=== PATIENT | female | born 1995 | race Native Hawaiian/Other Pacific Islander ===

== ENCOUNTER 2021-08-05 13:05 | Outpatient (CLI) | payer MEDICAID, SELFPAY ==
--- NOTE | 2021-08-05 13:00 | CRLHL7_ITS ---
For Patients: As a result of the Century Cures Act, medical imaging exams and procedure reports are released immediately into your electronic medical record. You may view this report before your referring provider. If you have questions, please contact your health care provider. OBSTETRICAL ULTRASOUND ANATOMY SURVEY 08/05/2021 CLINICAL HISTORY: anatomy survey. 1, para 0. TECHNIQUE: Multiple sonographic images were obtained transabdominally. FINDINGS: Gestational age by LMP: 20 weeks 6 days. Gestational age by today`s ultrasound: 21 weeks 6 days. JOSE by LMP: 12/17/2021. SDP: 6.3 cm. Cervical Length: 4.3 cm, closed. Estimated Weight: 453 g, 1 pound, 0 ounces. Heart Rate: 159 bpm. Placenta: Anterior. Placenta tip to internal os 4.8 cm. Placental insertion: Central. Umbilical cord: 3-vessel. Position: Variable. BPD: 5.4 cm, 22 weeks 4 days, 96%. HC: 20.3 cm, 22 weeks 3 days, 94%. AC: 17.2 cm, 22 weeks 1 day, 83%. FL: 3.5 cm, 21 weeks 1 day, 50%. SURVEY Calvarium/spine: Cerebellum 2.2 cm, 21 weeks 0 days. Cisterna magna 6 mm. Nuchal fold 4 mm. Lateral ventricle 6 mm. CSP, Midline Falx, Choroid Plexus, Spine all visualized. ANATOMY SURVEY: Abdomen: Stomach, abdominal cord insertion, urinary bladder, kidneys, diaphragm all visualized. Face: Nose/lips, orbital view, profile all visualized. Limbs: Upper extremities, lower extremities, hands, feet all visualized. Vascular: Four-chamber heart, 3 VV, 3 VTV all visualized. COMMENTS: Single live intrauterine gestation with composite gestational age of 21 weeks 6 days. JOSE of 12/10/2021. No gross anomalies visualized, however outflow tracts were suboptimally seen. CAITLIN ZUNIGA M.D. Transcribed: 7:56 p.m. [email or web address] be/Dictated by: Caitlin Zuniga MD @ 08/05/2021 2:57:00 PM (Electronically Signed)
== END 2021-08-05 13:06 | disposition home or self-care (01) ==
LOC: US 13:10
PROVIDERS: Visit Provider Advanced Practice Midwife
DX: Z34.02 Encounter for supervision of normal first pregnancy, second trimester (principal); Z3A.20 20 weeks gestation of pregnancy
CPT/HCPCS: 76805

== ENCOUNTER 2021-08-13 08:04 | Outpatient (CLI) | payer MEDICAID, SELFPAY ==
--- NOTE | 2021-08-13 08:15 | CRLHL7_ITS ---
For Patients: As a result of the Century Cures Act, medical imaging exams and procedure reports are released immediately into your electronic medical record. You may view this report before your referring provider. If you have questions, please contact your health care provider. INDICATION: SUBOPTIMAL HEART VIEWS follow-up COMPARISON: 08/05/2021 TECHNIQUE: Real time feliciano scale imaging of the fetus was performed as well as color Doppler analysis of the umbilical vessels. FINDINGS: Sonographic imaging demonstrates a single living intrauterine gestation. Fetus demonstrates a regular cardiac rate of 152 beats per minute. Fetus has a vertex position. The placenta lies anteriorly. Amniotic fluid volume appears normal. Single deepest vertical pocket: 5.6 cm. There is a normal four-chamber heart view and the left and right ventricular outflow tracts appear normal. IMPRESSION: Normal 4 chamber heart, outflow tracts and three-vessel view. Dictated by Loco Resendiz MD @ 08/13/2021 9:23:17 AM (Electronically Signed)
== END 2021-08-13 08:05 | disposition home or self-care (01) ==
LOC: US 08:05
PROVIDERS: Visit Provider Advanced Practice Midwife
DX: Z34.90 Encounter for supervision of normal pregnancy, unspecified, unspecified trimester (principal); Z36.2 Encounter for other antenatal screening follow-up
CPT/HCPCS: 76816

== ENCOUNTER 2021-09-30 13:26 | Outpatient (CLI) | payer MEDICAID, SELFPAY ==
[2021-10-02 18:50] LABS: Rapid Plasma Reagin (RPR) Non Reactive (Non Reactive)
[2021-10-02 23:42] LABS: Varicella-Zoster Virus Ab, IgG 205.4 IV
== END 2021-09-30 13:27 | disposition home or self-care (01) ==
PROVIDERS: Visit Provider Advanced Practice Midwife
DX: Z34.93 Encounter for supervision of normal pregnancy, unspecified, third trimester (principal); Z3A.28 28 weeks gestation of pregnancy
CPT/HCPCS: 86592; 86787

== ENCOUNTER 2021-11-23 13:42 | Outpatient (CLI) | payer MEDICAID, SELFPAY ==
[2021-11-24 13:18] LABS: Strep B DNA Probe POSITIVE (Negative)
== END 2021-11-23 13:43 | disposition home or self-care (01) ==
LOC: NFLDREF 13:43
PROVIDERS: Visit Provider Advanced Practice Midwife
DX: Z34.93 Encounter for supervision of normal pregnancy, unspecified, third trimester (principal); Z3A.38 38 weeks gestation of pregnancy
CPT/HCPCS: 76816; 87081; 87186; 87653

== ENCOUNTER 2021-12-06 02:21 | Outpatient (CLI) | payer MEDICAID, SELFPAY ==
[2021-12-06 02:33] VITALS: PULSE 90; O2SAT 98
[2021-12-06 02:36] VITALS: BP 119/67; PULSE 106; RESP 16; TEMP 36.6
[2021-12-06] MEDS: ONDANSETRON ODT 4 MG TAB PO (03:23)
--- NOTE | 2021-12-06 04:24 | PC.OBNST ---
NST Note NST Note Start: 12/06/21 02:24 Freq: ONCE Status: Active Protocol: Document 12/06/21 04:23 DOTTIE (Rec: 12/06/21 04:23 DOTTIE [id number]) NST Note 2 Para (# of births) 0 EDC 12/17/21 Gestational Age In Weeks & Days 38 Weeks & 3 Days Patient Presented with Complaint(s) of Contractions/cramping,Pain If Pain, describe location constant tailbone pain Reactive Yes Appropriate for Gestational Age Yes KRUPA Ball RNC Date 12/06/21 Reactive Yes Appropriate for Gestational Age Yes KRUPA Rosado RN Date 12/06/21 OB NST charge Yes Complete NST Note via Write Note Yes The provider's electronic signature indicates the NST is reactive/appropriate for gestational age. *Note to provider: If an addendum is required, open the patient's chart and click on the note under the Nurse/Allied Health tab.
== END 2021-12-06 04:20 | disposition home or self-care (01) ==
LOC: OB OUT 02:21 → OB 02:23
PROVIDERS: Visit Provider Advanced Practice Midwife
DX: O47.1 False labor at or after 37 completed weeks of gestation (principal); Z3A.38 38 weeks gestation of pregnancy
CPT/HCPCS: 59025; 99213; A9270

== ENCOUNTER 2021-12-07 09:29 | Outpatient (CLI) | payer MEDICAID, SELFPAY ==
--- NOTE | 2021-12-07 09:45 | CRLHL7_ITS ---
For Patients: As a result of the Century Cures Act, medical imaging exams and procedure reports are released immediately into your electronic medical record. You may view this report before your referring provider. If you have questions, please contact your health care provider. INDICATION: Third trimester scan, evaluate growth. Follow-up fluid COMPARISON: 11/23/2021 TECHNIQUE: Real time feliciano scale imaging of the fetus was performed as well as color Doppler and spectral Doppler analysis of the umbilical artery. FINDINGS: Sonographic imaging demonstrates a single living intrauterine gestation. Fetus demonstrates a regular cardiac rate of 129 beats per minute. Fetus has a vertex position. The placenta lies right anterior. Amniotic fluid volume appears normal and there is a single deepest vertical pocket: 8.8 cm. RAYMOND 14.4 cm. The estimated weight is 4275gm which lies at the greater than 97th %. On the prior OB ultrasound exam dated 11/24/2021 the estimated weight was at the 95th%. BPD and AC greater than 97th percentile. HC 80th percentile. FL 7th percentile. The HC/AC ratio measures 0.90 range (0.87-1.06). IMPRESSION: Sonographic gestational age 39 weeks 0 days and sonographic due date of 12/14/2021. Good correlation with dates. Normal interval growth. Four-quadrant RAYMOND 14.4 cm. Estimated weight greater than 97th percentile. BPD and AC greater than 97th percentile. Dictated by Loco Resendiz MD @ 12/07/2021 10:48:19 AM (Electronically Signed)
== END 2021-12-07 09:30 | disposition home or self-care (01) ==
LOC: US 09:30
PROVIDERS: Visit Provider Advanced Practice Midwife
DX: Z34.93 Encounter for supervision of normal pregnancy, unspecified, third trimester (principal)
CPT/HCPCS: 76815; 76816

== ENCOUNTER 2021-12-17 13:00 | Inpatient (IN) | payer MEDICAID, SELFPAY ==
[2021-12-17] VITALS (29 sets, daily range): BP systolic 117–130; BP diastolic 67–89; PULSE 72–107; RESP 16; TEMP 36.3–37.1; O2SAT 98–100
[2021-12-17 11:35] LABS: Amnisure Rom* POSITIVE
[2021-12-17] MEDS: AMPICILLIN 2 GM in 0.9 % SODIUM CHLORIDE Mini-bag 100 ML IVPB (12:20)
[2021-12-17] MEDS: LACTATED RINGERS 1000 ML 1,000 ML 125 ML IV (12:21)
--- NOTE | 2021-12-17 12:42 | P.LDBA_ITS ---
Subjective History of Present Illness Date Seen: 12/17/21 Narrative: Patient is being admitted to Labor and Delivery for SROM at 0530. She called L&D shortly after this time thinking she was leaking fluid. She was encouraged to come in but really wanted to labor at home. She was encouraged to come in as soon as she could. She choose to wait for her sister to get home from work to bring her in. She arrived around 09:30 and was found to be AmniSure + shortly after. She is linda mildly. she is being admitted and encouraged to change positions frequently and consider pumping and the labor warm up circuit. She is a 26 year old at 40.0 weeks gestation. Her full history and physical was dictated by Elton Turner on 11/30/2021. Please see this for details. 1. FOB has two cousins (one maternal and one paternal) w/ Trisomy 21 ?? ? Uncertain if they want genetic screening-declines 2. 20 week US-Anterior placenta, EFW 90% Growth US at 36 weeks: 95%ile EFW >97%ile at 38 weeks 3. Failed 1 hour gtt (173). Will test BS for 1-2 weeks because of intolerance of blood draws. 10/14/21: 20% abnormal postprandial w/ normal fasting. Recommended continued monitoring x 1 week for further evaluation. Additional week with only 1 abnormal fasting of 97, discontinued glucose monitoring 10/22, offered nutrition consult 4. Elevated SDP 36 weeks: SDP 8.3, RAYMOND 18.6 Possible mild poly, follow-up US scheduled for 38 weeks 38 weeks: SDP 8.8, RAYMOND 14.4, no follow-up needed 5.? GBS positive,?NEEDS?antibiotics in labor 6. FOB not involved OB - H&P: Exam Physical Exam: Vital signs: Pulse BP Pulse Ox 96 122/73 98 12/17/21 11:03 12/17/21 11:03 12/17/21 12:12 Narrative: Vitals per EMR? Psychiatric:? Alert and oriented x3? HEENT:? Normocephalic, atraumatic? Neck:? Supple without adenopathy or thyromegaly? Lungs:? Clear to auscultation bilaterally? Heart:? Regular rate and rhythm, no murmur, rub or gallop? Abdomen:? Soft, nontender, and gravid? Extremities:? No edema or erythema? Pelvic:? SVE: deferred at his time d/t ROM status? Membrane status:? ruptured, clear fluid? presentation:? vertex? FHT:? Moderate Variability.? Positive Accels.? No Decels. Baseline 125.? [place]:? Ctx Q2-5min? OB - Problem Based A/P Additional Plan (1) SROM (spontaneous rupture of membranes): Status: Acute (2) GBS (group B Streptococcus carrier), +RV culture, currently : Status: Acute Plan ASSESSMENT:? at 40.0 weeks gestation? GBS positive? EFW >97%? SROM in early labor? ?? PLAN:? 1. Antibiotic prophylaxis treatment per protocol? 2. Reviewed risks and benefits of expectant management vs labor augmentation. Would like expectant management at this time.? 3. Desires water . Consent signed. Hep C negative.? 4. Candidate for analgesia of choice. Planning unmedicated .? 5. Anticipate ? 6. Expectant management at this time.?Encouraged movement, pumping and labor warm up to encourage labor. 7. IV in place for antibiotic administration. 8. Intermittent monitoring per unit policy.? ? Delivery/Labor/Induction Plan Plan: expectant management
[2021-12-17 13:55] LABS: SARS PCR* Negative SARS-CoV-2 (Negative)
[2021-12-17 15:57] LABS: Basophils Absolute Auto 0.02 K/uL (0.00-0.30); Basophils Percent Auto 0.3 % (0.0-3.0); Eosinophils Absolute Auto 0.19 K/uL (0.00-0.50); Eosinophils Percent Auto 2.5 % (0.0-7.0); Hematocrit 35.1 % (33.0-51.0); Immature Granulocytes Abs Auto 0.02 K/uL (0.00-0.30); Immature Granulocytes Pct Auto 0.3 %; Lymphocytes Absolute Auto 1.71 K/uL (0.90-2.90); Lymphocytes Percent Auto 22.4 % (20-44); Mean Corpuscular HGB Conc 34 gm/dL (32-36); Mean Corpuscular Hemoglobin 32 pg (26-34); Mean Corpuscular Volume 93 fL (80-100); Monocytes Percent Auto 5.9 % (0.0-11.0); Neutrophils Absolute Auto 5.25 K/uL (1.7-7.0); Neutrophils Percent Auto 68.6 % (42.0-72.0); Platelet Count* 122 K/uL (140-440); RDW Coefficient of Variation % 13.1 % (11.5-15.5); Red Blood Count 3.78 m/uL (4.00-5.20); White Blood Count* 7.64 K/uL (4.50-11.00)
[2021-12-17 16:04] LABS: Slide Review Reflex No
[2021-12-17] MEDS: AMPICILLIN 1 GM in 0.9 % SODIUM CHLORIDE Mini-bag 100 ML IVPB ×2 (16:10→20:40)
--- NOTE | 2021-12-17 17:19 | P.OBPN_ITS ---
Subjective Date Seen: 12/17/21 Objective Exam: Contractions have not increased in frequency but are a little stronger per pt report. She would like a SVE at this time to make a plan. Discussed options of cytotec, pitocin or expectant management. All questions answered. She is agreeable to cytotec at this time. Tearful and feeling worried that she is not going to be able to deliver her baby. Encouraged rest, ambulation, and pumping as needed and able. Vital Signs: Last Vital Signs Temp 97.7 F 12/17/21 16:16 Pulse 89 12/17/21 16:16 Resp 16 12/17/21 16:16 BP 117/71 12/17/21 16:16 Pulse Ox 98 12/17/21 12:12 Pelvic Exam Dilation (cm): 1 Effacement (%): 40 Station: -3 Contractions Monitor mode: External Contraction Frequency: 5-10 min Contraction pattern: Regular Contraction intensity: Mild Assessment Assessment: early labor Station: -3 Amniotic Membrane Status: SROM Status: Category l Heart Rate Baseline: 125 Caddy/Caddie Supervisor Variability: Moderate (6-25) Monitor Accelerations: Present Monitor Decelerations: None
[2021-12-17] MEDS: miSOPROStoL 25 MCG/0.25 TABLET PO ×2 (17:34→20:39)
[2021-12-18] VITALS (36 sets, daily range): BP systolic 100–117; BP diastolic 55–77; PULSE 67–111; RESP 16–18; TEMP 36.4–37.3; O2SAT 96–100
[2021-12-18] MEDS: AMPICILLIN 1 GM in 0.9 % SODIUM CHLORIDE Mini-bag 100 ML IVPB ×2 (00:38→04:16)
[2021-12-18] MEDS: MORPHINE 10 MG/ML inj IM (01:12)
[2021-12-18] MEDS: hydrOXYzine pamoate 25 MG CAPSULE 100 MG PO (01:13)
[2021-12-18] MEDS: LACTATED RINGERS 1000 ML 1,000 ML 125 ML IV ×2 (02:49→09:34)
--- NOTE | 2021-12-18 02:59 | PM.OBPNL ---
Subjective Date Seen: 12/18/21 Narrative: I was called to evaluate the patient after she experienced SROM of a forebag and had a prolonged 5 minute deceleration to the 80's Dr. Walls was present on the unit and was present to assist with a FSE placement. The nurses also repositioned, gave a fluid bolus, and applied oxygen. She continued to have decelerations to the 70-80's with some contractions for the next 30 min. She continued to have good variability and return to baseline throughout. She is now having early and occasional variable decelerations. At the time of the FSE placement she had progressed from 1cm to 3cm. She is linda every 1.5-4 min. She is breathing well and coping with contractions. Her sister is at her bedside and supportive. Objective Vital Signs: Last Vital Signs Temp 97.5 F L 12/17/21 23:20 Pulse 77 12/18/21 01:34 Resp 16 12/17/21 23:20 BP 117/60 12/18/21 01:34 Pulse Ox 100 12/18/21 02:01 Pelvic Exam Dilation (cm): 3 Effacement (%): 80 Station: -2 Contractions Monitor mode: External Contraction pattern: Regular Contraction intensity: Mild Assessment Assessment: active labor Station: -3 Amniotic Membrane Status: SROM Status: Category l Heart Rate Baseline: 140 Detention Variability: Moderate (6-25) Monitor Accelerations: Present Monitor Decelerations: Prolonged (see note)
--- NOTE | 2021-12-18 04:38 | PM.OBPNL ---
Subjective Time Seen by Provider: 04:30 Date Seen: 12/18/21 Narrative: Intrapartum Progress Note? Labor and Delivery? Into room for introductions and to assess pt. ? Subjective: Janette is coping with labor pain/contractions by breathing through them, but still in significant pain. She is currently being supported by her sister. EFW 97% at 38w u/s. Called back into room by RN for SVE and to discuss options with pt. Consulted with Elton Gardiner CNM. Janette is planning waterbirth, but with need for FSE, she will not be able to get into the bathtub. Discussed with pt, but she is having a hard time talking through contractions and does not want to move or change positions due to pain. SVE was unchanged, still 3cm, baby not well applied to the cervix. Janette was planning an unmedicated , but with her level of discomfort RN suggested nitrous oxide, but Janette declined. Unable to use the tub d/t FSE. While moving Janette for SVE, baby had additional decels. Position changed to hands and knees which resulted in more decels. Consulted with Dr. Junior Prasad. Recommendation for urgent section, Janette agreeable. Objective Vital Signs: Last Vital Signs Temp 97.6 F 12/18/21 04:11 Pulse 111 H 12/18/21 04:11 Resp 16 12/18/21 04:11 BP 117/77 12/18/21 04:11 Pulse Ox 100 12/18/21 02:01 Pelvic Exam Dilation (cm): 3 Effacement (%): 80 Station: -2 Contractions Monitor mode: External Contraction Frequency: 1-4 Contraction pattern: Irregular Contraction intensity: Moderate Assessment Assessment: early labor Station: -2 Amniotic Membrane Status: SROM Status: Category lll Heart Rate Baseline: 130 [employer] Dealer Variability: Moderate (6-25) Monitor Accelerations: Present Monitor Decelerations: Prolonged (see note) Plan Plan: ASSESSMENT:? at 40.0 weeks gestation? GBS positive? EFW >97%? SROM in early labor Cat 3 FHT Pt not tolerating labor? ?? PLAN:? 1. Antibiotic prophylaxis treatment per protocol? 2. Terbutaline to stop contractions 3. Section, transfer care to Dr. Junior Prasad ?
--- NOTE | 2021-12-18 05:42 | PM.OBCN1 ---
OB - CN: HPI Date of Consult Time Seen by Provider: 05:43 Date Seen: 12/18/21 Patient: Other (CNM patient) Consult date: 12/18/21 Requesting Physician: Maryan Crawford CNM Primary Care Provider: Not a Local Provider Consult Narrative Reason for consult: arrest of labor and nonreassuring FHTs Narrative: HPI: The patient is a 26 year old G 2 P 0 at 40 Weeks and 1 day gestation that was admitted to the Center on 12/17/21 for spontaneous rupture of membranes, clear fluid, GBS positive, unfavorable cervix. She received 3 doses of oral Cytotec 25 mg. Over the labor course there are multiple episodes of heart rate decelerations into the 70s-80s. She has been 3 cm dilated since 2:00 a.m. and is currently having repetitive late decelerations, moderate variability no accelerations, category 2. Maryan Crawford requested a consultation for recommendations as the patient is having nonreassuring heart rate tracing remote from delivery. Her was complicated by mild polyhydramnios that resolved with weekly ultrasounds. Last estimated weight at 38 weeks gestation was> 97%. Her history and physical was reviewed at the time of this consultation. Her past medical, surgical, obstetric/gynecologic, social and family history's were reviewed. History History 2 Elective abortions Para 0 Spontaneous abortions 1 Hx # Term Pregnancies Ectopic pregnancies Hx # Pregnancies Multiple births Number of Living Children 0 Labs Rubella: immune RPR/VDLR: nonreactive GBS status: positive HBsAG: negative OB Labs: Lab Assessment Start: 12/17/21 11:56 Freq: ONCE Status: Complete Protocol: PC.OBGBS Activity Type Activity Date Activity User E-sign Co-sign Detail Recorded Client Recorded Date Recorded By Document 12/17/21 15:28 [facility] [id number] 12/17/21 15:29 S 12/17/21 15:28 Lab Assessment GBS Positive Previous [place] with Invasive GBS No Does Patient Meet Criteria No Is Patient Allergic to Penicillin No No Treatment Needed OK Maternal Blood Type A Maternal RH Factor Positive Evaluate Maternal Rubella Immune Status Immune Hepatitis B Surface Antigen Negative Maternal HIV Status Negative Maternal Syphillis (RPR) Status Negative Are Labs Available Yes PFSH [facility] Medical History (Updated 12/18/21 @ 05:49 by Renée Pascual MD) No significant past medical history Surgical History (Updated 12/18/21 @ 05:49 by Renée Pascual MD) History of facial surgery Status post primary low transverse section (12/18/21) Family History (Updated 11/30/21 @ 12:38 by Carmen Turner CNM) Unknown Patient unsure of family history Social History (Updated 11/30/21 @ 12:39 by Carmen Turner CNM) Are you following a diet prescribed by a doctor: No Are you following a special diet: No Highest level of school completed/degree received: Associate degree: occupational, technical, vocational program Physical activity type: none Smoking Status: Never smoker Non-prescribed substance use: denies use Caffeine: Yes (occasional) Meds Home Medications and Allergies Home Medications Medication Instructions Recorded Confirmed Type cholecalciferol (vitamin D3) 50 50 mcg PO QDAY 08/05/21 12/17/21 History mcg (2,000 unit) capsule prenat.vits,joellen,wbi-rznh-puyyi 1 tab PO QDAY 08/05/21 12/17/21 History Allergies Allergy/AdvReac Type Severity Reaction Status Date / Time No Known Allergies Allergy Verified 12/17/21 14:19 OB - H&P: Exam Physical Exam: Vital signs: Temp Pulse Resp BP Pulse Ox 97.6 F 111 H 16 117/77 100 12/18/21 04:11 12/18/21 04:11 12/18/21 04:11 12/18/21 04:11 12/18/21 02:01 Narrative: GENERAL APPEARANCE: Pleasant, , well-groomed woman in significant pain with contractions VITAL SIGNS: as noted in nursing notes HEAD: Normocephalic, atraumatic. THYROID: no masses, nodularity, tenderness or enlargement. LUNGS: Clear to auscultation bilaterally without wheezes, rales or rhonchi. HEART: Regular rate and rhythm with normal S1 and S2. No gallop, rub or murmur. ABDOMEN: Gravid. Soft, nontender, nondistended, with normal bowels sounds throughout. FSE: Baseline 130s repetitive late decelerations over the last 30 minutes, no accelerations, moderate variability. Category 2 PRESENTATION: [Vertex] by Jared's maneuvers. SVE: 3 cm/ 100 %/ -3: Unchanged from previous exam at 2:00 a.m. EXTREMITIES: No cyanosis, or clubbing. 1-2 +bilateral lower extremity edema to the ankle NEUROLOGIC: Normal gait and balance. Normal deep tendon reflexes at bilateral patella 2+/2, equal without clonus. PSYCHIATRIC: alert and oriented x3. Normal speech pattern, eye contact and affect. SKIN: Warm, dry, and well perfused. Good turgor. No lesions, nodules or rashes. OB - Results Labs Labs: Short CBC 12/17/21 Range/Units 12:09 WBC 7.64 (4.50-11.00) K/uL Hgb 12.0 (12.0-16.0) gm/dL Hct 35.1 (33.0-51.0) % Plt Count 122 L (140-440) K/uL OB - CN: A/P Assessment and Plan (1) SROM (spontaneous rupture of membranes): Status: Acute (2) GBS (group B Streptococcus carrier), +RV culture, currently : Status: Acute (3) Non-reassuring electronic monitoring tracing: Status: Acute Assessment and Plan: Due to nonreassuring heart rate tracing remote from delivery a recommended primary low-transverse section. Consent form for primary low-transverse section reviewed and signed. Operating room staff notified of unstable . (4) Status post primary low transverse section: Status: Acute
--- NOTE | 2021-12-18 05:52 | P.PCN_ITS ---
Procedure Note Time Seen by Provider: 05:53 Date Seen: 12/18/21 Date of procedure: 12/18/21 Will [facility] bill your pro fee for this procedure?: Yes Procedure: Preoperative diagnosis: 26-year-old 2 para 0010 at 40 and 1/7 weeks * Repetitive late decelerations * Arrest of dilation at 3 cm * Suspected macrosomia Postoperative diagnosis: Same Procedure: Primary low-transverse section Anesthesia: Spinal Surgeon: Renée Pascual MD [employer] Supervisor: Not applicable Quantitative blood loss: 270 mL IV Fluid: 500 mL UOP: 150 mL Specimen: none Drain(s): Brunner to gravity Findings: A live male infant was delivered from the ROP position at 6:52 a.m. Apgars were 9 at 1 min and 9 at 5 min, respectively. Infant weight: 8 lb 13 oz = AGA. Nuchal cord(s): no. The placenta was delivered spontaneously and complete at 6:54 a.m. Amniotic fluid: clear. Normal uterus, fallopian tubes and ovaries were noted. Other findings: none Procedure: Janette was taken to the OR where spinal anesthetic was found be adequate. A Brunner catheter was placed. The patient was then placed in the dorsal supine position with a leftward tilt. She was then prepped and draped in a normal sterile manner. A Pfannenstiel skin incision was made and carried through sharply to the underlying layer of fascia. Fascia was incised in the midline and this incision carried laterally with Leon scissors. The superior aspect of fascial incision was grasped with Wyatt clamps, tented up, and the rectus muscles dissected off with a combination of blunt and bipolar cauterydissection. The inferior aspect of the fascial incision was grasped with Wyatt clamps, tented up and again the rectus muscles dissected off with a combination of blunt and bipolar cautery dissection. The rectus muscles were in the midline. The peritoneum was entered bluntly. This opening was extended bluntly. An Rocco-O self-retaining retractor was placed. A bladder flap was not created. Uterus was incised in a low transverse manner in the midline. This incision carried laterally with blunt pressure on the inferior and superior aspects of the uterine incision. The amniotic sac was ruptured. The infant's head and body was delivered atraumatically. The was shown to the patient and her support person and then handed to waiting pediatric and nursing staff. The placenta was delivered spontaneously. The uterus was cleared of clots and debris. The uterine incision was re-approximated with the uterus in vivo. The 1st layer using 0-Vicryl in a running, locked manner. The 2nd layer using 0- Monocryl in a running, vertical, imbricating layer. Additional sutures needed for hemostasis: no. Meghana was applied to the uterine incision. Excellent hemostasis was verified. The Rocco retractor was removed. The peritoneum was repaired using 3-0 Vicryl in a running manner. The rectus muscles were not re-approximated. The rectus muscles were then closely inspected to verify hemostasis. Hemostasis was obtained with bipolar cautery. The fascia was then re-approximated using 0-Maxon loop in a running manner. The subcutaneous tissue was then irrigated with saline and hemostasis obtained with bipolar cautery. The subcutaneous tissue was re-approximated using 3-0 plain gut interrupted sutures, 3 sutures total used. The skin was re-approximated using 4-0 Monocryl in a running subcuticular manner. A silver- containingMethaplex dressing was applied. The patient tolerated this procedure well. Sponge, lap and instrument counts were correct x2 active to the procedure. Patient was taken to the recovery area in stable condition. The patient received 2g of IV Ancef prior to skin incision. She received 1 g IV TXA after umbilical cord clamp. Surgeon: Renée Pascual MD
--- NOTE | 2021-12-18 09:11 | W.ANESCHARGE ---
Anesthesia Charges Start Date/Time Anesthesia Start Date: 12/18/21 Anesthesia Start Time: 06:13 Stop Date/Time Anesthesia Stop Date: 12/18/21 Anesthesia Stop Time: 07:50 Summary Emergency: Yes
[2021-12-18] MEDS: KETOROLAC 30 MG/ML inj IVP ×3 (09:32→21:15)
[2021-12-18] MEDS: SODIUM CHLORIDE 0.9 % (FLUSH) 10 ML SYRINGE IVF ×2 (09:33→21:15)
--- NOTE | 2021-12-18 14:11 | W.PM.NB ---
Nerve Block Nerve Block Time Seen by Provider: 06:13 Date Seen: 12/18/21 Type of block requested by surgeon for post-operative analgesia: TAP Side: bilateral Time out performed: Yes Verification of patient name: Yes Verification of date of : Yes Site marking: site marked Name of person performing procedure: JASON Caraballo Continuous monitoring Was continuous monitoring of O2 sat, B/P, associate professor of library science, recorded every 15 minutes?: Yes Procedure Checklist: sterile prep, needles and gloves Ultrasound guided. Images saved: Yes Medications given in 5ml increments after negative aspiration: Marcaine (30 total) %: 0.25 mL: 15 Needle gauge: 20 and Exparel (10 total ) mL: 5 Needle gauge: 20 Patient tolerated procedure well: Yes Block Charges Block Charge (with Pro Fee): TAP Bilateral Use of Ultrasound Machine for Block: Yes- US Guidance/pain block
[2021-12-18] MEDS: ACETAMINOPHEN 500 MG TABLET 1000 MG PO (23:56)
[2021-12-18] MEDS: OXYCODONE 5 MG TABLET PO (23:56)
[2021-12-19] VITALS (10 sets, daily range): BP systolic 107–121; BP diastolic 71–75; PULSE 76–90; RESP 16–18; TEMP 36.6–36.9; O2SAT 98–99
[2021-12-19] MEDS: KETOROLAC 30 MG/ML inj IVP ×3 (03:30→15:33)
[2021-12-19 04:34] LABS: Hemoglobin* 9.4 gm/dL (12.0-16.0)
--- NOTE | 2021-12-19 08:40 | P.OBPN_ITS ---
OB - PN: A/P Assessment and Plan (1) Status post primary low transverse section: Status: Acute (2) care and examination of lactating mother: Status: Acute (3) Anemia: Status: Acute Plan A: 26 yo G2 now P1 Post- Day 1 Lactating mother Anemia P: Routine post-cesection care support Iron supplementation Plan to go home tomorrow or day after Plan day: 1 Plan: routine postop care OB - PN: Subj Subjective Time Seen by Provider: 08:30 Date Seen: 12/19/21 Interval history: Janette is a 26 year old, G 2 now P 1? admitted on 12/17/21 at 39 Weeks, 0 Days gestation for SROM.? She had an uncomplicated primary delivery r/t intolerance of labor and failure to progress.? She delivered a viable male infant, [place].? She is breast feeding and reports things are well with help from the nurses.? the patient has done well.? Vitals have been stable.? She has remained afebrile.? She has not been up to the bathroom yet, her stern was removed just before I saw her.? She has not been passing gas and has had a bowel movement, but bowel sounds are normoactive.? She denies any dizziness and is planning to get up to the bathroom and shower with RN this morning.? Patient comments: pain well controlled (Tordol) and tolerating diet [place] infant status: and doing well [place] feeding status: exclusively OB - PN: Obj Exam Physical Exam: Vital signs: Temp Pulse Resp BP Pulse Ox O2 Del Method 97.8 F 76 18 121/71 99 12/19/21 07:59 12/19/21 07:59 12/19/21 07:59 12/19/21 07:59 12/19/21 07:59 12/19/21 07:59 Constitutional: Constitutional: no acute distress Routine HEENT Exam: Head: Present normocephalic Eye: Present normal appearance ENT: Present normal external ear exam Routine Neck Exam: Neck: Present full ROM Routine Respiratory Exam: Respiratory: Present CTA bilaterally Routine Cardiovascular Exam: Cardiovascular: Present RRR Routine Abdominal Exam: Abdominal: Present normal bowel sounds, soft and tenderness Fundus: Present firm (3/U) Routine Exam: External: Present normal external exam Comments: Lochia is small, rubra, no clots Routine Extremities Exam: Extremities: Present full ROM and pedal edema Routine Back/Spine/Pelvis Exam: Back/Spine: Present full ROM Routine Skin Exam: Skin: Present dry and warm; Absent rash Routine Neurological Exam: Neurological: Present alert and oriented X3 Detailed Neurological Exam: Coma Scale: Eye Opening: Spontaneous (4) Verbal Response: Orientated (5) Routine Psychiatric Exam: Psychiatric: Present normal affect, normal thought process, cooperative, good insight and good judgment Wound Management: Method: adhesive Examination: Present dressed, clean and dry; Absent bloody drainage or serosanguinous drainage Urinary Catheter Management: Urethral: Cath placed during this visit: no Insertion date: 12/18/21 Insertion time: 06:25 OB - PN: Obj Data Labs Labs: Laboratory Results - last 24 hr 12/19/21 03:37 Hgb 9.4 L
[2021-12-19] MEDS: DOCUSATE SODIUM 100 MG CAPSULE PO (09:48)
[2021-12-19] MEDS: ACETAMINOPHEN 500 MG TABLET 1000 MG PO ×2 (13:33→19:32)
[2021-12-19] MEDS: OXYCODONE 5 MG TABLET PO (19:33)
[2021-12-19] MEDS: IBUPROFEN 600 MG TABLET PO (23:08)
[2021-12-20 00:19] VITALS: BP 112/67; PULSE 81; RESP 18; TEMP 36.9; O2SAT 98
[2021-12-20] MEDS: ACETAMINOPHEN 500 MG TABLET 1000 MG PO ×2 (06:23→12:00)
[2021-12-20] MEDS: OXYCODONE 5 MG TABLET PO (06:23)
--- NOTE | 2021-12-20 08:04 | PM.OBDSCS1 ---
DS: Providers Provider Time Seen by Provider: 07:30 Date Seen: 12/20/21 Date of admission: 12/17/21 13:00 Primary care physician: Not a Local Provider Admitting Clinician: Carmen Turner CNM Attending Physician on discharge: Carmen Turner CNM Date of Discharge: 12/20/21 DS: Diagnosis Discharge Diagnosis (1) Status post primary low transverse section: Status: Acute (2) Lactating mother: Status: Acute (3) Anemia: Status: Acute Exam Narrative: Exam Narrative: GENERAL APPEARANCE:? normal affect, alert, no distress? MOOD:? appropriate? CHEST:? clear to auscultation and percussion? HEART:? regular rate and rhythm? ABDOMEN:? soft, non-tender the uterine fundus is 2 cm Below Umbilicus, Midline and is appropriate for the stage of recovery.? PERINEUM:? deferred.? EXTREMITIES:? normal and no edema? SKIN: Incision covered with dressing. Dressing clean, dry and intact. No active bleeding?? Doing well? She is requesting discharge home.? ? Const: Vital Signs, click to edit/add: Vital Signs - 24 hr 12/19/21 15:52 12/20/21 00:19 Temperature 98.4 F 98.5 F Pulse Rate [Blood Pressure Cuff] 81 81 Respiratory Rate 18 18 Blood Pressure [Ri ght Arm] 119/75 112/67 Pulse Oximetry 98 98 Oxygen Delivery Me thod Room Air Room Air Documenting provider has reviewed patient's vital signs: yes OB - DS: Summary Hospital Course Hospital Course: Patient is a 26year old, G 2 now P 1? admitted on 12/17/21 at 40 Weeks, 0 Days gestation for SROM.? She had an uncomplicated delivery.? She delivered a viable male .? She is breast feeding and reports things are well.?She plans to meet with today. the patient has done well.? Her pain is well controlled with current medications.? She has no new complaints.? Vitals have been stable. She has remained afebrile. She is voiding without difficulty. She is passing gas and has had a bowel movement. She is anemic but she is ambulating without difficulty and denies any dizziness. She is unsure what she is planning for control.?Educated on her options that are compatible with .?She is requesting to be discharged home today.?She doesn't have a support person that lives with her. Her sister has been and plans to continue to be a support person as she is able. She also has a public health nurse that she is following with and who plans to visit her today. Peripartum Data Procedures: Procedures Operation Date: 12/18/21 06:45 Actual Procedure Side Surgeon p Section Not Applicable Renée Pascual MD complications: none [place] Infant Gender: Male Discharge Plan: Home Status at Discharge Functional status at discharge: independent ambulation Overall status at discharge: patient is progressing back to baseline Time Spent with Patient Time attestation: Total time spent providing and/or coordinating discharge services: Discharge Plan Discharge Disposition: Home, Self-Care Date of Admission: 12/17/21 13:00 Attending Provider on Discharge: Carmen Turner Primary Care Provider: Provider,Not a Local Condition: Stable Anticipated Discharge Date/Time: 12/20/21 15:30 Discharge Medications: New docusate sodium 100 mg Capsule 100 mg PO DAILY Qty: 100 0RF Rx Instructions: Take 1-2 tables daily as needed for constipation. ibuprofen 600 mg Tablet 600 mg PO Q6H PRN (Reason: Pain) Qty: 90 0RF ferrous sulfate 325 mg (65 mg iron) Tablet 325 mg PO DAILYWM Qty: 90 0RF oxycodone 5 mg Tablet 5 - 10 mg PO Q4H PRN (Reason: Pain) Qty: 14 0RF Continued prenat.vits,joellen,[id number]-[id number] Tablet 1 tab PO QDAY cholecalciferol (vitamin D3) 50 mcg (2,000 unit) capsule 50 mcg PO QDAY Discharge Orders: Discharge Order (Routine); Ordered 12/20/21 Ordered By: Carmen Turner Patient Education: OB Over the Counter Medication Information, OB /Breast Feeding Additional Instructions: Discharge instructions were reviewed with the patient including signs and symptoms of infection and home going medications Activity restrictions: Lifting Restrictions: 20 pounds for 6 weeks No high-impact or core exercises for 6 weeks. No not submerge incision under water X 2 weeks? Nothing vaginally for 6 weeks: no tampons or intercourse Do not drive while taking narcotic pain medication(s) Off Work or School for 8 weeks Follow up visits: 1. Next week: See Dr. Pascual on 12/23/21 to remove your dressing and do an incision check. 2. 2-week visit: discuss feeding/care concerns, review control options and screen for anxiety/depression. 3. 6-week visit for an annual exam. consultation services are available to all mothers and babies for the first year after delivery.? To make an appointment, please call [phone]. Discharge Diet: Regular Follow Up Appointments: [facility] [Provider Group] Provider,Not a Local [Primary Care Provider] - Forms: [employer] Info Instructions
[2021-12-20 08:10] VITALS: BP 116/76; PULSE 77; RESP 18; TEMP 36.6; O2SAT 97
[2021-12-20] MEDS: FERROUS SULFATE 325 MG TABLET PO (09:44)
[2021-12-20] MEDS: IBUPROFEN 600 MG TABLET PO (09:44)
[2021-12-20] MEDS: DOCUSATE SODIUM 100 MG CAPSULE PO (09:44)
== END 2021-12-20 15:00 | disposition home or self-care (01) | DRG 788 ==
LOC: OB OUT 21:18 → OB 21:18
PROVIDERS: Obstetrics & Gynecology; Admitting Provider Advanced Practice Midwife; Visit Provider Advanced Practice Midwife
PROC: 10D00Z1 Extraction of Products of Conception, Low, Open Approach (ICD-10-PCS; CPT 59514; principal; 2021-12-18 06:30)
DX: O99.824 Streptococcus B carrier state complicating childbirth (principal); O76 Abnormality in fetal heart rate and rhythm complicating labor and delivery; O62.0 Primary inadequate contractions; O36.63X0 Maternal care for excessive fetal growth, third trimester, not applicable or unspecified; Z37.0 Single live birth; O40.3XX0 Polyhydramnios, third trimester, not applicable or unspecified; Z3A.40 40 weeks gestation of pregnancy
CPT/HCPCS: 01961; 36415; 59200; 64488; 76942; 84112; 85018; 85025; 86850; 86900; 86901; 87635; 99140; 99213; A9270; C9290; J0290; J1885; J2270; J2274; J2370; J2590; J3490; J7120

== ENCOUNTER 2021-12-28 09:59 | Outpatient (CLI) | payer MEDICAID, SELFPAY ==
[2021-12-28 14:15] LABS: Total Protein Urine 6 mg/dL
[2021-12-28 14:16] LABS: Creatinine Urine 163.4 mg/dL
[2021-12-28 14:22] LABS: Alanine Aminotransferase* 26 U/L (4-35); Aspartate Amino Transferase* 29 U/L (12-35); Creatinine* 0.7 mg/dL (0.5-1.5); Estimated Glomerular Filt Rate 122 ml/min
[2021-12-28 14:23] LABS: Blood Urea Nitrogen* 18 mg/dL (5-24)
== END 2021-12-28 10:00 | disposition home or self-care (01) ==
PROVIDERS: Visit Provider Registered Nurse
DX: Z39.2 Encounter for routine postpartum follow-up (principal); R03.0 Elevated blood-pressure reading, without diagnosis of hypertension; D64.9 Anemia, unspecified
CPT/HCPCS: 82565; 82570; 84156; 84450; 84460; 84520